=== PATIENT | male | born 1970 | race Caucasian/White ===

== ENCOUNTER 2017-08-17 11:53 | Day surgery (SDC) | payer OTHER ==
[~2017-08-17] VITALS: Ht 185.4 cm; Wt 112.0 kg
--- NOTE | ~2017-08-17 | O ---
[facility] [address] OPERATIVE REPORT Name: TRUDY ZARAGOZA DELVIN Room #: DEP [facility].#: [id number] Admission: 08/17/17 Attend Phys: Brittani Obrien, Discharge: 08/17/17 Date of : 68 Report #: [id number] THIS REPORT FOR: //name// CC: Sanjeev Obrien DATE OF SERVICE: 08/17/2017 PREOPERATIVE DIAGNOSIS: Right hand abscess. POSTOPERATIVE DIAGNOSIS: Right hand abscess. PROCEDURE PERFORMED: Right hand incision and debridement. SURGEON: Brittani Obrien MD ANESTHESIA: General mask anesthesia. ESTIMATED BLOOD LOSS: Minimal. TOURNIQUET TIME: 11 minutes. COMPLICATIONS: None. CONDITION: Stable. DISPOSITION: To recovery room. INDICATIONS: This patient is a 47-year male with the above-mentioned diagnosis. He elected for operative treatment. The risks, benefits, alternatives and complications were discussed to include but not limited to inability to completely resolve the infection, requiring more surgery, damage to blood vessels or nerves, and wound healing problems. When I saw him in the office today, he had developed somewhat improved erythema, continued pain and approximately a 4 cm area of pus or purulent tissue beneath the skin and the thenar eminence. He still did not have any pain with range of motion of the thumb or digits and did not have any neurologic compromise. The correct extremity was identified and labeled by myself. After verbal confirmation of the patient, as well as visual confirmation, signed informed consent. DESCRIPTION OF PROCEDURE: The patient was brought back to the operating room, placed on the operating table in supine position. He did not receive preoperative antibiotics. He did receive vancomycin after the tourniquet was deflated and the cultures were taken. The arm was elevated, but not exsanguinated and the tourniquet inflated. Next, an oblique incision was made over the area of skin that had from the deeper area and white fluid [address] [address] OPERATIVE REPORT Name: NIKTRUDY DELVIN Room #: DEP [facility]..#: [id number] Admission: 08/17/17 Attend Phys: Brittani Obrien, Discharge: 08/17/17 Date of : 68 Report #: [id number] was obtained. This was not gross purulence. Then, approximately a 3 cm incision was made in the thenar eminence over the mid portion of the area of the probable abscess and copious amount of purulent fluid was expressed. Dissection was carried down into the thenar muscles with tenotomy scissors and then a Mosquito hemostat. Multiple areas of purulence were found in the thenar muscles. These do not extend into the flexor tendon sheath or the carpal tunnel. The area was thoroughly debrided with a RayTec sponge and then gently with a synovial rongeur. The area was then thoroughly irrigated with a liter of antibiotic saline and cleaned. Kerlix was placed into the wound and then the wound was dressed with Kerlix and sterile gauze. He was placed in a bulky compressive dressing. All fingers were pink with brisk capillary refill at the conclusion of case. After deflation of the tourniquet and after application of the dressing, all sponge and needle counts were correct. The patient was transferred to postoperative recovery room in stable condition. <ELECTRONICALLY SIGNED> By: Brittani Obrien MD 08/21/17 1146 1558 07 Brittani Obrien MD /nt
--- NOTE | ~2017-08-17 | EKG ---
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: JAVIER : 1970 Requested By: Brittani Obrien Order Number: [id number] MD: Johnny Trejo Measurements Intervals [place] Rate: 96 P: 26 DC: 165 QRS: -17 QRSD: 77 T: 99 QT: 354 QTc: 448 Interpretive Statements Sinus rhythm Abnormal R-wave progression, early transition LVH with secondary repolarization abnormality Inferior infarct, old No previous ECG available for comparison Electronically Signed On 08-17-2017 15:48:40 CDT by Johnny Trejo [email or web address] <ELECTRONICALLY SIGNED> By: Johnny Trejo MD 08/17/17 1548 1320 1320 Johnny Trejo MD /EPI
[~2017-08-17 11:53] MED LIST: BACTRIM DS TAB1 EACH PO; CEPHALEXIN 500500 M2 PO; CHROMIUM200 MCG PO; CLEOCIN HCL300 MG PO; CLOTRIMAZOLE 1%15 G1 TOP; GENTAMICIN SU3 MG/ML OP; GLUCOPHAGE500 MG PO; HYDROCODON-ACE1 EAC7 PO; JANUVIA100 MG PO; KEFLEX500 MG PO; LEVEMIR SUBQ; LISINOPRIL10 MG PO; LOVAZA1000 MG PO; METFORMIN 500500 MG PO; MUPIROCIN22 GM NASAL; NIASPAN 500 MG500 M1 PO; NORCO 5-325 TA1 EACH PO; TRICOR145 MG PO; [UNRECOGNIZED DRUG - REMARK]
[2017-08-17 14:30] VITALS: BP 160/103
[2017-08-17 16:30] VITALS: BP 160/103
== END 2017-08-17 17:59 | disposition home or self-care (01) ==
LOC: OR 11:53 → EDSTATUS 11:53 → TBA 11:54 → OR 17:59
DX: L02.511 Cutaneous abscess of right hand (principal)
CPT/HCPCS: 50010; 50101; 50386; 57091; 62110; 62900; 70005